=== PATIENT | female | born 1975 | race Caucasian/White ===

== ENCOUNTER 2020-03-30 14:00 | Outpatient (RCR) | payer BC, SELFPAY ==
--- NOTE | 2020-01-02 14:13 | PTOPEVAL ---
PHYSICAL THERAPY EVALUATION AND PLAN OF CARE Thank you for referring this patient to [facility] [place]. Leny will be seen in PT 2x/week for 4-8 weeks with re-evaluation. Please review, sign, date and return this plan of care MADHU. I agree with and certify that the following plan of care is medically necessary. Referring Physician Date Evaluation Outpatient Past Medical History Gastrointestinal History Hx Gastric Bypass Surgery Yes Evaluation Information Problem Diagnosis left hip arthrscopy and labral repair Onset 12/12/2019 Subjective Information Had surgery following wear and Query Text:As Reported By Patient/ tear on left hip. She states Family that there is soreness and discomfort, but the pain is significantly. 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 Self Report Pain Assessment Left Hip Reported Pain Level 5 Pain Frequency Acute Current Pain Intensity 5 Lowest Pain Intensity 5 Greatest Pain Intensity 6 Pain Aggravating Factors Walking,Weight Bearing/ Standing Pain Behaviors None Pain Relief Interventions Used By Medication Patient Hip Range of Motion Left Hip Flexion Range of Motion - Active 90 Hip Flexion Range of Motion - Passive 90 Hip Range of Motion Comments surgical precautions to not perform >90deg flexion and no IR/ER of hip until 6weeks post op Hip Strength Left Hip Flexion Strength 3+ Fair + Hip Extension Strength 4- Good - Hip Abduction Strength 3+ Fair + Knee Strength Left Knee Flexion Strength 4- Good - knee Extension Strength 4- Good - Palpation 3 arthroscopic incision sites - clean and healed - mild thickening under scars for which she was encouraged to gently massage with lotion to soften Gait Assessment Ambulation Assistive Devices Crutches Weight Bearing Status - Left As Tolerated Weight Bearing Status - Right Full Maintains Weight Bearing Status Yes Weight Bearing Comment throughout clinic Stair Climbing Assessment Stair Climbing Assistive Devices Railings Weight Bearing Status - Left As Tolerated Weight Bearing Status - Right Full Maintains Weight Bearing Status Yes Number of Steps Climbed (Steps) 4 Number of Repetitions (Repetitions) 3 Technique
--- NOTE | 2020-01-29 15:13 | PTOPEVAL ---
PHYSICAL THERAPY PLAN OF CARE UPDATE AND PROGRESS REPORT Thank you for referring this patient to [facility]. I recommend continuing physical therapy 2x/week for 4 weeks. Please review, sign, date and return this plan of care MADHU. I agree with and certify that the following plan of care is medically necessary. Referring Physician Date Re-evaluation Outpatient Past Medical History Gastrointestinal History Hx Gastric Bypass Surgery Yes Evaluation Information Problem Diagnosis left hip arthrscopy and labral repair Onset 12/12/2019 Subjective Information doing well today and went well Query Text:As Reported By Patient/ after last treatment. Saw Family physician on 01/23/2020 and was instructed to continue with restrictions for 4 weeks (until 02/20/2020). Self Report Pain Assessment Left Hip Reported Pain Level 1 Pain Description Aching,Radiating,Tightness Pain Frequency Continuous Pain Aggravating Factors Walking,Weight Bearing/ Standing Pain Behaviors None Interventions Used By Clinicians Exercise,Ice Lower Extremity Range of Motion Hip Range of Motion Left Hip Flexion Range of Motion - Active 90 Hip Flexion Range of Motion - Passive 90 Hip Range of Motion Comments surgical precautions to not perform >90deg flexion and no IR/ER of hip until 02/20/2020 Hip Strength Left Hip Flexion Strength 4- Good - Hip Extension Strength 4 Good Hip Abduction Strength 3+ Fair + Knee Strength Left Knee Flexion Strength 4+ Good + Knee Extension Strength 4+ Good + Gait Assessment Ambulation Assistive Devices Crutches Weight Bearing Status - Left As Tolerated Weight Bearing Status - Right Full Maintains Weight Bearing Status Yes Weight Bearing Comment throughout clinic; using single crutch, no pain Stair Climbing Crutches,Railings Weight Bearing Status - Left As Tolerated Weight Bearing Status - Right Full Maintains Weight Bearing Status Yes Number of Steps Climbed (Steps) 4 Number of Repetitions (Repetitions) 3 Technique Single Steps Stair Climbing Direction Both Up and Down Stair Climbing Ability Independent Stair Climbing Comments with single crutch Clinical Summary Leny is a 44 yo s/p 7 weeks post op left hip arthroscopy with labral repair. She is progressing well toward her goals. Her function and
--- NOTE | 2020-02-03 08:45 | PCPTNOTE ---
Patient called & cancelled scheduled appointment this date due to being ill.
--- NOTE | 2020-02-06 10:39 | PCPTNOTE ---
Patient called & cancelled scheduled appointment this date due to illness.
--- NOTE | 2020-02-26 14:21 | PTOPEVAL ---
PHYSICAL THERAPY PLAN OF CARE UPDATE AND PROGRESS REPORT Thank you for referring Leny Johnson to [facility]. I recommend continuing physical therapy 2x/week for 4 weeks. Please review, sign, date and return this plan of care MADHU. I agree with and certify that the following plan of care is medically necessary. Referring Physician Date Re-evaluation Outpatient Past Medical History Gastrointestinal History Hx Gastric Bypass Surgery Yes Evaluation Information Problem Diagnosis left hip arthrscopy and labral repair Onset 12/12/2019 Subjective Information patient feels no pain today. Query Text:As Reported By Patient/ At this time is slated to go Family back to work on 03/30/2020. Pain Assessment Timing of Pain Assessment Timing of Pain Assessment Pre-Treatment Self Report Self Report Pain Level 0 Lower Extremity Range of Motion Hip Range of Motion Left Hip Flexion Range of Motion - Active 120 Hip Medial Rotation - Active 31 Hip Lateral Rotation - Passive 16 Lower Extremity Muscle Strength Testing Hip Strength Left Hip Flexion Strength 4+ Good + Hip Extension Strength 4 Good Hip Abduction Strength 4 Good Knee Strength Left Knee Flexion Strength 5 Normal Knee Extension Strength 4+ Good + Balance Assessment Bunch Balance Assessment: 56/56 Time Up Go (TUG); 11sec 5 Time Sit to Stand Time in Seconds 18.57 Gait Assessment Normal gait pattern without assistive device Stair Climbing Assessment Stair Climbing Assistive Devices Railings Weight Bearing Status - Left Full Weight Bearing Status - Right Full Maintains Weight Bearing Status Yes Number of Steps Climbed (Steps) 4 Number of Repetitions (Repetitions) 3 Technique Alternating Steps Stair Climbing Direction Both Up and Down Stair Climbing Ability Independent PT Clinical Summary Leny is a 44 yo female who has participated in 15 visits for physical therapy following left hip arthrscopy. She presents today with significantly improving gait pattern and stair climbing ability and improve strength. She does continue present with decreased left LE strength and balance. I recommend continuing physical therapy.
--- NOTE | 2020-03-19 11:17 | PCPTNOTE ---
Patient came in for her appointment today, while waiting, she started feeling queasy & alittle lightheaded, then she decided to cancelled scheduled appointment this date.
--- NOTE | 2020-03-23 09:59 | PTOPEVAL ---
PHYSICAL THERAPY PLAN OF CARE UPDATE AND PROGRESS REPORT Thank you for referring Leny Johnson to [facility]. I recommend Leny continue physical therapy 1x/week for 4 weeks. Please review, sign, date and return this plan of care MADHU. I agree with and certify that the following plan of care is medically necessary. Referring Physician Date Re-evaluation Diagnosis left hip arthrscopy and labral repair Onset 12/12/2019 Subjective Information continues to feel stronger Query Text:As Reported By Patient/ with some activities in which Family she feels weak; has difficulty going down stairs and floor transfers Pain Assessment Timing of Pain Assessment Timing of Pain Assessment Pre-Treatment Self Report Self Report Pain Level 0 Pain Score Pain Score 0: Self Report Lower Extremity Range of Motion Hip Range of Motion Left Hip Flexion Range of Motion - Active 130 Hip Abduction Range of Motion - Active 35 Hip Medial Rotation - Passive 20 Hip Lateral Rotation - Passive 41 Lower Extremity Muscle Strength Testing Hip Strength Left Hip Flexion Strength 5 Normal Hip Extension Strength 4 Good Hip Abduction Strength 4+ Good + Knee Strength Left Knee Flexion Strength 5 Normal Knee Extension Strength 5 Normal Balance Assessment 56/56 Time Up Go (TUG) Timed Up and Go Test (TUG) (Seconds) 9.44 Assistive Devices None 5 Time Sit to Stand Time in Seconds 15.18 Gait Assessment: normal Stair Climbing assessment Maintains Weight Bearing Status Yes Number of Steps Climbed (Steps) 4 Number of Repetitions (Repetitions) 4 Technique Alternating Steps Stair Climbing Direction Both Up and Down Stair Climbing Ability Independent Stair Climbing Comments left LE is shakey during descent PT Clinical Summary Leny is a 44 yo female who has participated in 21 visits for physical therapy following left hip arthrscopy. Her strength and ROM are progressing significantly with challenge for functional tasks in going up/down ladders , down stairs, and floor transfers. I recommend continuing 1x/week for 4 weeks with emphasis on HEP and training for floor transfers. PT Services Indicated Yes Rehabilitation Potential
--- NOTE | 2020-04-02 09:04 | PCPTNOTE ---
This treatment is being continued on visit number [id number]. Please see documentation on both accounts to view progress. Completed interventions, outcomes, and problems have been marked as Inactive to facilitate the copying of the Care plan routine for recurring accounts.
== END 2020-04-01 23:59 | disposition home or self-care (01) ==
LOC: ANHPT 14:00
PROVIDERS: PCP Family Medicine
DX: M25.552 Pain in left hip (principal)
CPT/HCPCS: 97110; 97140; 97161

== ENCOUNTER 2020-05-18 08:00 | Outpatient (RCR) | payer BC, SELFPAY ==
--- NOTE | 2020-04-02 09:04 | PCPTNOTE ---
The treatment documented on this account is a continuation of the treatment documented on visit number [id number]. Please see documentation on both accounts to view progress. The Plan of Care has been transitioned and updated within the new V#. I have addressed and agree with the discipline specific Problems, Interventions, and Goals for the current certification period. Completed interventions, outcomes, and problems have been marked as Inactive to facilitate the copying of the Care plan routine for recurring accounts.
--- NOTE | 2020-04-20 13:23 | PTOPEVAL ---
PHYSICAL THERAPY PLAN OF CARE UPDATE AND PROGRESS REPORT Thank you for referring Leny Johnson to [facility]. I recommend continuing physical therapy 1x/week for 3 weeks. Please review, sign, date and return this plan of care MADHU. I agree with and certify that the following plan of care is medically necessary. Referring Physician Date Problem Diagnosis left hip arthrscopy and labral repair Onset 12/12/2019 Subjective Information States that getting on/off the Query Text:As Reported By Patient/ floor continues to be a Family significant challenge, makes the hip pretty angry. Self Report Pain Level 0 Additional Pain Score Comments a little tender on the back side and in the groin Lower Extremity Range of Motion Hip Range of Motion Left Hip Flexion Range of Motion - Active 120 Lower Extremity Muscle Strength Testing Hip Strength Left Hip Flexion Strength 5 Normal Hip Extension Strength 5 Normal Hip Abduction Strength 5 Normal Hip Strength Comments half kneeling to standing left foot forward: requires use of UE and painful in glutes/ piriformis and gets tight in hip flexor with repetition; single leg squat: lacks power and stability, same pain occurs as when performing half kneeling to standing Knee Strength Left Knee Flexion Strength 5 Normal Knee Extension Strength 5 Normal Palpation trigger points noted to left gluteus medius, TFL, and psoas all of which cause patient pain when she is performing functional mobility tasks including floor transfers and LLE single leg activities. Gait Pattern No Deviations/Normal PT Clinical Summary Leny is a 44 yo female who has participated in 25 visits for physical therapy following left hip arthrscopy. Leny's strength and ROM continue to normalize; however, she continues to experience pain symptoms with functional tasks that limit power, endurance, and stability. Currently there are trigger points
--- NOTE | 2020-04-27 13:14 | PCPTNOTE ---
Leny phoned earlier in the day to cancel today's appointment due to illness.
--- NOTE | 2020-05-11 12:17 | PCPTNOTE ---
Patient called & cancelled scheduled appointment this date. No reason provided.
--- NOTE | 2020-05-18 08:38 | PTOPEVAL ---
PHYSICAL THERAPY DISCHARGE NOTE Thank you for referring Leny Johnson to [facility] [facility]. Please review, sign, date and return this plan of care MADHU. I agree with and certify that the following plan of care is medically necessary. Referring Physician Date Discharge Outpatient Past Medical History Gastrointestinal History Hx Gastric Bypass Surgery Yes Diagnosis left hip arthroscopy and labral repair Onset 12/12/2019 Subjective Information States the hip is good. It is Query Text:As Reported By Patient/ sore by night time, but Family nothing I can't live with. Has been walking 20-30minutes 3x/a day. Pain Assessment Timing of Pain Assessment Timing of Pain Assessment Pre-Treatment Self Report Self Report Pain Level 0 Pain Score Pain Score 0: Self Report Additional Pain Score Comments a little tender on the back side and in the groin Lower Extremity Range of Motion Hip Range of Motion Left Hip Flexion Range of Motion - Active 120 Lower Extremity Muscle Strength Testing Hip Strength Left Hip Flexion Strength 5 Normal Hip Extension Strength 4+ Good + Hip Abduction Strength 5 Normal Hip Strength Comments half kneeling to standing left foot forward: independent; single leg squat: requires right toe for balance, but is able to rise to standing without external assist Knee Strength Left Knee Flexion Strength 5 Normal Knee Extension Strength 5 Normal PT Clinical Summary Leny is a 44 yo female who has participated in 28 visits for physical therapy following left hip arthrscopy. Leny demonstrates today WFL ROM ( deficit to rotation) and WFL strength of left hip. She has been increasing walking distance/endurance and she has been practicing single leg squad and rise from half kneeling. All functional activities are independent and may only require a small finger touch or toe touch for balance. There is very minimal pain with activity at this time with most discomfort
== END 2020-05-18 14:19 | disposition home or self-care (01) ==
LOC: ANHPT 08:00
PROVIDERS: PCP Family Medicine
DX: M25.552 Pain in left hip (principal)
CPT/HCPCS: 97110; 97140

== ENCOUNTER 2020-09-24 01:31 | Emergency (ER) | payer BC, SELFPAY ==
--- NOTE | ~2020-09-24 | CT_ITS ---
EXAMINATION: CT abdomen pelvis wo con DATE: 09/24/2020 02:09 INDICATION: Abdominal pain TECHNIQUE: Computed tomography (CT) of the abdomen and pelvis was performed without intravenous contr ast. The dose-length product (DLP) was 590.33 mGy-cm. Automated exposure control and iterative recons truction technique were employed. COMPARISON: 07/07/2015 FINDINGS: Calcified pulmonary nodules are consistent with old granulomatous disease. The heart size i s normal. Surgical changes in the stomach are consistent with gastric bypass. The liver, spleen, panc reas, and adrenal glands are normal. There is mild distention of the otherwise normal-appearing gallb ladder. The kidneys are unremarkable. No pathologically enlarged abdominal or pelvic lymph nodes are identified. There is no free intraperitoneal gas or evidence of bowel obstruction. The appendix is no rmal. There are changes of hysterectomy. IMPRESSION: 1. No CT correlate for the patient's symptoms. Reviewed, dictated and finalized at location A. FORM POWER TECHNICIAN
[2020-09-24 01:30] VITALS: BP 136/82; PULSE 120; RESP 20; TEMP 36.6; O2SAT 98
[2020-09-24 01:50] VITALS: BP 128/72; PULSE 96; RESP 20; O2SAT 99
--- NOTE | 2020-09-24 01:56 | ECG_ITS ---
Measurements Intervals Lewis Rate: 57 P: 29 SD: 170 QRS: 8 QRSD: 82 T: 36 QT: 386 QTc: 378 Interpretive Statements SINUS BRADYCARDIA POSSIBLE LEFT ATRIAL ENLARGEMENT RSR' IN V1 OR V2, PROBABLY NORMAL VARIANT LOW QRS VOLTAGE IN PRECORDIAL LEADS BASELINE ARTIFACT- V2-V4 BORDERLINE ECG Electronically Signed On 09-24-2020 7:10:10 FLIGHT HOSTESS by Daniel Gonzalez D.O.
--- NOTE | 2020-09-24 01:58 | ED.ABDPAIN ---
HPI - Abdominal Pain General Chief Complaint: Abdominal Pain Stated Complaint: abd pain Time Seen by Provider: 09/24/20 01:42 Source: patient Mode of arrival: EMS Limitations: no limitations History of Present Illness HPI narrative: Patient is a 45-year-old female complaining of epigastric pain, was 8 out of 10, now at 3 out of 10, that started earlier today which subsided and recurred again early this morning and woke her up from sleep. Patient denies any nausea, vomiting, diarrhea or fever. Patient denies any chest pain or shortness of breath. Related Data Home Medications Medication Instructions Recorded Confirmed linaclotide 145 mcg capsule 145 mcg PO DAILY 11/06/19 11/06/19 Allergies Allergy/AdvReac Type Severity Reaction Status Date / Time Cephalosporins Allergy Mild Hives / Verified 02/25/20 10:52 Red Face egg Allergy Mild Hives Verified 02/25/20 10:52 cephalexin Allergy Unknown Rash Verified 02/25/20 10:52 ciprofloxacin Allergy Unknown Hives Verified 02/25/20 10:52 iodine Allergy Unknown Hives Verified 02/25/20 10:52 ALT. PENICILLIN ANTIBIOTIC Allergy Severe HIVES Uncoded 02/25/09 08:42 IN PREOP Contrast Media Allergy Mild IODINE CT Uncoded 12/27/17 05:20 SCAN (RASH) CIPROFLOXACIN HCL Allergy Unknown Rash Uncoded 11/06/19 12:02 Review of Systems Review of Systems: All systems reviewed & are unremarkable except as noted in HPI and below Constitutional: Constitutional: Denies body ache(s), Denies chills, Denies excessive sweating, Denies fatigue, Denies fever(s), Denies headache(s), Denies lethargy, Denies malaise, Denies weakness and Denies weight loss Eyes: Eyes: Denies blurry vision, Denies change in vision and Denies loss of vision ENT: Denies dizziness, Denies ear discharge, Denies headache(s), Denies lip swelling, Denies epistaxis, Denies nasal congestion, Denies neck pain, Denies throat swelling and Denies tongue swelling Cardiovascular: Cardiovascular: Denies chest pain, Denies chest pain at rest, Denies chest pain with activity, Denies diaphoresis, Denies rapid heart rate, Denies edema, Denies irregular heart rhythm, Denies lightheadedness, Denies palpitations, Denies dyspnea and Denies dyspnea on exertion Respiratory: Respiratory: Denies chest congestion, Denies cough, Denies hemoptysis, Denies dyspnea and Denies dyspnea on exertion Gastrointestinal: Gastrointestinal: Denies melena, Denies hematochezia, Denies diarrhea, Denies nausea, Denies vomiting and Denies hematemesis Musculoskeletal: Musculoskeletal: Denies abnormal gait, Denies deformity, Denies joint swelling, Denies limited range of motion, Denies neck pain and Denies numbness Neurologic: Denies Abnormal speech present, Denies abnormal gait, Denies confusion, Denies dizziness, Denies headache(s), Denies focal weakness, Denies loss of vision, Denies numbness, Denies Other visual disturbances, Denies Sensory deficit (Neuro) and Denies weakness Psychiatric: Psychiatric: Denies confusion, Denies depression, Denies auditory hallucinations, Denies homicidal ideation and Denies suicidal ideation Endocrine: Endocrine: Denies cold intolerance, Denies excessive sweating, Denies fatigue, Denies heat intolerance and Denies palpitations Hematologic/Lymphatic: Hematologic/Lymphatic: Denies easy bleeding and Denies easy bruising Allergic/Immunologic: Allergic/Immunologic: Denies lip swelling, Denies throat swelling and Denies tongue swelling PMF Past Medical History Medical History (Updated 09/24/20 @ 03:12 by Khris Rutledge MD) Chronic SI joint pain HLD (hyperlipidemia) Hypothyroidism Surgical History Surgical History H/O hernia repair H/O hysterectomy with oophorectomy Hx of gastric bypass (~2015) Family History Family History Mother Family history of thyroid disease Family history of heart disease in male family member bef
[2020-09-24 02:04] LABS: Basophils Absolute Auto 0.1 K/mm3 (0.0-0.1); Basophils Percent Auto 0.8 % (0.2-1.2); Eosinophils Absolute Auto 0.2 K/mm3 (0-0.3); Eosinophils Percent Auto 2.7 % (0-4.4); Hematocrit 40.6 % (37.0-47.0); Hemoglobin 13.5 g/dL (12.0-15.0); Immature Granulocyte Absolute 0.02 K/mm3 (0.00-0.031); Immature Granulocyte Percent A 0.3 % (0-0.5); Lymphocytes Absolute Auto 2.41 K/mm3 (0.9-3.2); Lymphocytes Percent Auto 31.3 % (18.3-44.2); Mean Corpuscular HGB Conc 33.3 g/dl (32-36); Mean Corpuscular Hemoglobin 31.5 pg (26-34); Mean Corpuscular Volume 94.6 fl (80-100); Mean Platelet Volume 10.8 fl (7.4-10.4); Monocytes Absolute Auto 0.5 K/mm3 (0.1-0.6); Monocytes Percent Auto 6.2 % (2.6-8.5); Neutrophils Absolute Auto 4.5 K/mm3 (1.3-6.7); Neutrophils Percent Auto 58.7 % (45.5-73.1); Platelet Count Result 187 k/mm3 (150-375); Red Blood Count 4.29 M/mm3 (4.2-5.4); Red Cell Distribution Width 12.7 % (11.5-14.5); White Blood Count 7.7 K/mm3 (4.5-10.0)
[2020-09-24] MEDS: PANTOPRAZOLE SODIUM IV 40 MG VIAL IV PUSH (02:15)
[2020-09-24 02:16] LABS: Alanine Aminotransferase 112 U/L (4-35); Albumin Level 4.1 g/dL (3.5-5.1); Alkaline Phosphatase 90 U/L (38-126); Anion Gap 8 mmol/L (8-16); Aspartate Amino Transferase 292 U/L (14-36); Bilirubin,Total 0.6 mg/dL (0.2-1.3); Blood Urea Nitrogen 12 mg/dL (7-17); Calcium 9.4 mg/dL (8.4-10.2); Carbon Dioxide 28 mmol/L (22-30); Chloride 104 mmol/L (98-107); Estimated CRCL calculation 107 ml/min; Estimated Glomerular Filt Rate > 60; Glucose 94 mg/dL (65-105); Lipase 155 U/L (23-300); Potassium 4.2 mmol/L (3.4-5.0); Sodium 140 mmol/L (137-145)
[2020-09-24 03:41] VITALS: BP 109/71; PULSE 66; RESP 18; O2SAT 97
== END 2020-09-24 03:44 | disposition home or self-care (01) ==
PROVIDERS: Emergency Provider Emergency Medicine; PCP Family Medicine
DX: K29.00 Acute gastritis without bleeding (principal); E78.5 Hyperlipidemia, unspecified; E03.9 Hypothyroidism, unspecified; Z98.84 Bariatric surgery status; R00.1 Bradycardia, unspecified; R94.31 Abnormal electrocardiogram [ECG] [EKG]
CPT/HCPCS: 36415; 74176; 80053; 83690; 85025; 93005; 96374; 99284; C9113

== ENCOUNTER 2021-03-18 17:07 | Emergency (ER) | payer BC, SELFPAY ==
--- NOTE | ~2021-03-18 | CT_ITS ---
EXAMINATION: CT abdomen pelvis wo con DATE: 03/18/2021 18:02 INDICATION: Epigastric abdominal pain. TECHNIQUE: Computed tomography (CT) of the abdomen and pelvis was performed with 100 mL Omnipaque-350 intravenous contrast. Automated exposure control and iterative reconstruction technique were employe d. The dose-length product was 491.69 mGy-cm. COMPARISON: 09/24/2020 FINDINGS: Calcified left lower lobe nodule and calcified paraesophageal lymph node consistent with old granulom atous disease. Heart size is normal. No pericardial or pleural effusion. Liver, gallbladder, spleen, pancreas, bilateral adrenal glands and kidneys are normal. Postoperative change of prior Huan-en-Y ga stric bypass procedure. There is prominent mesenteric edema and engorgement of the venous mesenteric vasculature distal to th e root of the mesentery where there appears be a swirl with the superior mesenteric vein curving coun terclockwise around the superior mesenteric artery. 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 No abnormal bowel wall thickening, pneumatosis or obstruction. Bladder is normal. The uterus is not identified and has likely been surgically resected. No free intraperitoneal gas or fluid. No patholo gically enlarged abdominal or pelvic lymphadenopathy. IMPRESSION: 1. 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 2. Postoperative change of prior Huan-en-Y gastric bypass procedure. Reviewed, dictated and finalized at location A. IMPRESSION: 1. 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 2. Postoperative change of prior Huan-en-Y gastric bypass procedure.
[2021-03-18 17:15] VITALS: BP 145/97; PULSE 118; RESP 18; TEMP 36.1; O2SAT 100
[2021-03-18 17:32] VITALS: BP 125/90; PULSE 63; RESP 24; TEMP 36.6; O2SAT 98
[2021-03-18 17:48] LABS: Basophils Absolute Auto 0.1 K/mm3 (0.0-0.1); Eosinophils Absolute Auto 0.2 K/mm3 (0-0.3); Eosinophils Percent Auto 2.8 % (0-4.4); Hematocrit 42.4 % (37.0-47.0); Immature Granulocyte Absolute 0.03 K/mm3 (0.00-0.031); Immature Granulocyte Percent A 0.4 % (0-0.5); Lymphocytes Percent Auto 19.5 % (18.3-44.2); Mean Corpuscular Hemoglobin 31.5 pg (26-34); Mean Corpuscular Volume 95.5 fl (80-100); Mean Platelet Volume 10.3 fl (7.4-10.4); Monocytes Absolute Auto 0.6 K/mm3 (0.1-0.6); Monocytes Percent Auto 6.9 % (2.6-8.5); Neutrophils Absolute Auto 5.7 K/mm3 (1.3-6.7); Neutrophils Percent Auto 69.4 % (45.5-73.1); Platelet Count Result 235 k/mm3 (150-375); Red Blood Count 4.44 M/mm3 (4.2-5.4); Red Cell Distribution Width 11.3 % (11.5-14.5); White Blood Count 8.2 K/mm3 (4.5-10.0)
--- NOTE | 2021-03-18 17:49 | ED.ABDPAIN ---
HPI - Abdominal Pain General Chief Complaint: Abdominal Pain Stated Complaint: Abd Pain Time Seen by Provider: 03/18/21 17:34 Source: patient Mode of arrival: EMS Limitations: no limitations History of Present Illness HPI narrative: This is a 45 year old female that presents to the ER for mid abdominal pain present over the last couple of hours. Reports the pain is sharp in nature. Does report some diarrhea. Denies fever, vomiting, dysuria, or hematuria. Related Data Home Medications Medication Instructions Recorded Confirmed linaclotide 145 mcg capsule 145 mcg PO DAILY 11/06/19 11/06/19 Allergies Allergy/AdvReac Type Severity Reaction Status Date / Time Cephalosporins Allergy Mild Hives / Verified 11/23/20 14:07 Red Face egg Allergy Mild Hives Verified 11/23/20 14:07 cephalexin Allergy Unknown Rash Verified 11/23/20 14:07 ciprofloxacin Allergy Unknown Hives Verified 11/23/20 14:07 iodine Allergy Unknown Hives Verified 11/23/20 14:07 ALT. PENICILLIN ANTIBIOTIC Allergy Severe HIVES Uncoded 11/23/20 14:07 IN PREOP Contrast Media Allergy Mild IODINE CT Uncoded 11/23/20 14:07 SCAN (RASH) CIPROFLOXACIN HCL Allergy Unknown Rash Uncoded 11/23/20 14:07 Review of Systems Review of Systems: Narrative: CONSTITUTIONAL: Denies fever GASTROINTESTINAL: Reports abdominal pain, diarrhea. Denies nausea, vomiting GENITOURINARY: Denies dysuria or hematuria. All systems reviewed & are unremarkable except as noted in HPI and below PMFSH Past Medical History Medical History (Updated 03/19/21 @ 00:00 by Background Dachandana) Chronic SI joint pain Elevated liver enzymes HLD (hyperlipidemia) Hypothyroidism Surgical History Surgical History (Updated 11/23/20 @ 14:52 by Sultana Olivas MD) Gastric bypass status for obesity H/O hernia repair H/O hysterectomy with oophorectomy History of hip surgery Hx of gastric bypass (~2015) Family History Family History Mother Family history of thyroid disease Family history of heart disease in male family member before age 55 Father Family history of diabetes mellitus in first degree relative Sibling Family history of heart disease in male family member before age 55 Other Carcinoma of colon Hypertension Social History Social History Smoking status: Never smoker Second hand tobacco smoke exposure: No Alcohol intake: current Gender identity (if verbalized by the patient): Female Exam Narrative: Exam Narrative: GENERAL: Well-appearing, well-nourished, and in mild acute distress due to pain. HEAD: Normocephalic, atraumatic. EYES: EOMI. CHEST: Clear to auscultation. No respiratory distress. No wheezes rales or rhonchi HEART: Regular rate and rhythm. No murmur heard. Normal peripheral pulses. ABDOMEN: Soft, nondistended, normal active bowel sounds. Tender to palpation in the epigastrium, without guarding. No CVA tenderness EXTREMITIES: Normal range of motion. No edema. SKIN: Warm, dry, no rash. NEURO: No focal deficits. Alert and oriented x3. PSYCH: Normal mood and affect Course Consultations Consultation #1: Spoke with Dr. Serrano about patient and work-up who reports patient needs to be at a center that does bariatric surgery Date: 03/18/21 Time: 18:30 Consultation #2: Patient's surgeon at the time was practicing at [facility]. He no longer practices there, but I did attempt to transfer there and the surgeon on-call did not accept. Date: 03/18/21 Time: 19:00 Consultation #3: Spoke with Dr. Adler at [facility] who is unable to accept transfer as they are full. Date: 03/18/21 Time: 19:30 Additional Consultation(s): [facility] has accepted transfer. Spoke with Dr. Sarkar about patient and workup Vital Signs Vital signs: Vital Signs Temperature 97.0 F L 03/18/21 17:15 Pulse Rate 118 H 03/18/21 17:15 Respiratory Rate 18 02/19
[2021-03-18 17:58] LABS: Alanine Aminotransferase 22 U/L (4-35); Albumin Level 4.6 g/dL (3.5-5.1); Alkaline Phosphatase 69 U/L (38-126); Anion Gap 7 mmol/L (8-16); Aspartate Amino Transferase 31 U/L (14-36); Bilirubin,Total 0.4 mg/dL (0.2-1.3); Blood Urea Nitrogen 10 mg/dL (7-17); Calcium 9.7 mg/dL (8.4-10.2); Carbon Dioxide 29 mmol/L (22-30); Chloride 103 mmol/L (98-107); Estimated CRCL calculation 73 ml/min; Estimated Glomerular Filt Rate > 60; Glucose 92 mg/dL (65-105); Lipase 215 U/L (23-300); Potassium 4.1 mmol/L (3.4-5.0); Sodium 139 mmol/L (137-145)
[2021-03-18] MEDS: MORPHINE SULFATE (*CRX) 4 MG/ML INJ IV PUSH ×3 (18:09→22:47)
[2021-03-18] MEDS: PANTOPRAZOLE SODIUM IV 40 MG VIAL IV PUSH (18:09)
[2021-03-18] MEDS: ONDANSETRON INJ 4 MG/2 ML VIAL IV PUSH (18:10)
[2021-03-18 19:00] LABS: Lactic Acid Reflex 1.4 mmol/L (0.7-2.1)
[2021-03-18 19:30] VITALS: BP 124/75; PULSE 53; RESP 16; O2SAT 95
[2021-03-18 20:21] LABS: Add Urine Microscopic? YES; Appearance Urine Clear (Clear); Bacteria Urine Trace /hpf; Bilirubin Urine Negative (Negative); Blood Urine Negative (Negative); Color Urine Yellow (Yellow); Glucose Urine UA Negative (Negative); Ketones Urine Trace mg/dL (Negative); Leukocyte Esterase Ur Negative LEU/UL (Negative); Nitrate Urine Negative (Negative); Protein Urine Negative (Negative); RBC Urine 0-2 /hpf (0-2); Specific Grav Ur 1.011 (1.001-1.035); Squamous Epithelial Cell Urine Occasional /hpf (Few); Urobilinogen Urine Negative mg/dL (<2.0); WBC Urine 0-3 /hpf
[2021-03-18 20:30] VITALS: BP 128/68; PULSE 57; RESP 16; O2SAT 98
[2021-03-18 21:00] VITALS: BP 109/62; PULSE 56; RESP 16; O2SAT 99
[2021-03-18 22:00] VITALS: BP 139/81; PULSE 54; RESP 16; O2SAT 99
--- NOTE | 2021-03-18 22:40 | PC.NURSE ---
pt works with [employer] [employer] and company offered to take her to [facility]
== END 2021-03-18 22:55 | disposition short-term general hospital (02) ==
PROVIDERS: Physician Assistant; Emergency Provider Emergency Medicine; PCP Family Medicine
DX: K56.2 Volvulus (principal); E78.5 Hyperlipidemia, unspecified; E03.9 Hypothyroidism, unspecified; Z98.84 Bariatric surgery status
CPT/HCPCS: 36415; 74176; 80053; 81001; 83605; 83690; 85025; 96374; 96375; 96376; 99285; C9113; J0131; J2270; J2405

== ENCOUNTER 2021-05-02 11:05 | Emergency (ER) | payer BC, SELFPAY ==
[2021-05-02 11:11] VITALS: BP 129/94; PULSE 75; RESP 16; TEMP 35.9; O2SAT 100
--- NOTE | 2021-05-02 11:14 | ED.SKABFB ---
HPI - Skin/Abscess/Foreign Bdy General Chief complaint: Skin/Abscess/Foreign Body Stated complaint: spider bite Time Seen by Provider: 05/02/21 11:10 Source: patient and RN notes reviewed Mode of arrival: ambulatory Limitations: no limitations History of Present Illness HPI narrative: 46-year-old female presents to the [facility] with complaints of a spider bite to the left side of face. Redness with mild swelling noted to the anglican area. No change in vision or blurry vision. Currently eyelids are not involved. Able to open and close issue. Swelling noted temporal area into the cheek and stops at the edge of the eyebrow. Denies fevers. Denies any drainage from the site. No chest pain or abdominal pain. No treatment prior to arrival Patient states she is really concerned about the infection because she is scheduled for surgery at the end of this month for a tear in the left hip. Related Data Home Medications Medication Instructions Recorded Confirmed linaclotide 145 mcg capsule 145 mcg PO DAILY 11/06/19 05/02/21 Allergies Allergy/AdvReac Type Severity Reaction Status Date / Time Cephalosporins Allergy Mild Hives / Verified 05/02/21 11:14 Red Face egg Allergy Mild Hives Verified 05/02/21 11:14 cephalexin Allergy Unknown Rash Verified 05/02/21 11:14 ciprofloxacin Allergy Unknown Hives Verified 05/02/21 11:14 iodine Allergy Unknown Hives Verified 05/02/21 11:14 ALT. PENICILLIN ANTIBIOTIC Allergy Severe HIVES Uncoded 05/02/21 11:14 IN PREOP Contrast Media Allergy Mild IODINE CT Uncoded 05/02/21 11:14 SCAN (RASH) CIPROFLOXACIN HCL Allergy Unknown Rash Uncoded 05/02/21 11:14 Review of Systems Review of Systems: All systems reviewed & are unremarkable except as noted in HPI and below Constitutional: Constitutional: Reports no additional constitutional complaints, Denies chills and Denies fever(s) Eyes: Eyes: Reports no additional eye complaints, Denies change in vision and Denies photophobia ENT: Reports system reviewed and no additional complaints, except as documented, Denies vertigo, Denies dizziness, Denies nasal congestion and Denies sore throat Cardiovascular: Cardiovascular: Reports no additional cardiovascular complaints and Denies chest pain Respiratory: Respiratory: Reports no additional respiratory complaints, Denies cough, Denies dyspnea and Denies wheezing Gastrointestinal: Gastrointestinal: Reports no additional gastrointestinal complaints, Denies abdominal pain, Denies nausea and Denies vomiting Musculoskeletal: Musculoskeletal: Reports no additional musculoskeletal complaints Integumentary/Breasts: Skin/Breast: Reports as per HPI, Reports erythema (Left lateral [id number] left tempral area) and Denies rash Neurologic: Reports system reviewed and no additional complaints, except as documented, Denies vertigo, Denies dizziness, Denies syncope, Denies headache(s), Denies focal weakness and Denies numbness Psychiatric: Psychiatric: Reports no additional psychiatric complaints Allergic/Immunologic: Allergic/Immunologic: Reports no additional allergic/immunologic complaints, Denies lip swelling, Denies throat swelling, Denies tongue swelling and Denies wheezing PMFSH Past Medical History Medical History (Updated 05/02/21 @ 11:15 by Cynthia Ruvalcaba) Chronic SI joint pain Elevated liver enzymes HLD (hyperlipidemia) Hypothyroidism Surgical History Surgical History Gastric bypass status for obesity H/O hernia repair H/O hysterectomy with oophorectomy History of hip surgery Hx of gastric bypass (~2015) Family History Family History Mother Family history of thyroid disease Family history of heart disease in male family member before age 55 Father Family history of diabetes mellitus in first degree relative Sibling Family history of heart disease in male family member before age 55 Other Carcino
== END 2021-05-02 11:19 | disposition home or self-care (01) ==
PROVIDERS: Emergency Provider Nurse Practitioner; PCP Family Medicine
DX: L03.211 Cellulitis of face (principal); L02.01 Cutaneous abscess of face; E78.5 Hyperlipidemia, unspecified; E03.9 Hypothyroidism, unspecified; Z98.84 Bariatric surgery status
CPT/HCPCS: 99213; G0463

== ENCOUNTER 2021-09-23 12:30 | Outpatient (RCR) | payer BC, SELFPAY ==
--- NOTE | 2021-07-01 10:48 | PTOPEVAL ---
PHYSICAL THERAPY EVALUATION AND PLAN OF CAR E Thank you for referring Leny Johnson to [facility].? The patient is scheduled to be seen for therapy? 2x/week for 4-6 weeks. Please review, sign, date and return this plan of care MADHU. I agree with and certify that the following plan of care is medically necessary. Referring Physician Date Evaluation Diagnosis left hip arthroscopy and labral repair Onset 06/17/2021 Subjective Information Leny is here today 2 weeks s/p Query Text:As Reported By Patient/ surgery. This is the second Family time she has had this surgery. After the first surgery she went back to work ([employer]) for 1. 5 months and stepped out of the ambulance and felt a pop. The labrum retore with a tear in the capsule. Self Report Pain Assessment Left Hip(s) Reported Pain Level 1 Pain Frequency Acute,Intermittent Other Pain Description just tender Pain Aggravating Factors Lifting Pain Behaviors None Pain Score Pain Score 1: Self Report Interventions Used Interventions Used By Clinicians Exercise Pain Relief Interventions Used By Medication,Position Change Patient Lower Extremity Range of Motion Hip Range of Motion Left Hip Flexion Range of Motion - Active 90 Hip Extension Range of Motion - Active 20 Lower Extremity Muscle Strength Testing Hip Strength Left Hip Flexion Strength 4+ Good + Hip Extension Strength 4- Good - Hip Abduction Strength 4 Good Knee Strength Bilateral Knee Flexion Strength 5 Normal Knee Extension Strength 5 Normal Palpation Assessment Palpation Palpation incision sites are clean and dry and soft to touch with minimal scar tissue forming Gait Assessment Gait Assessment Ambulation Assistive Devices Crutches Weight Bearing Status - Left As Tolerated Weight Bearing Status - Right Full Maintains Weight Bearing Status Yes Ambulation Distance 200 Query Text:(Feet) Ambulation Ability Independent Stair Climbing Assessment Stair Climbing Assessment Stair Climbing Assistive Devices Railings Weight Bearing Status - Left As Tolerated Weight Bearing Status - Right Full Maintains Weight Bearing Status Yes Number of Steps Climbed (Steps) 4 Number of Repetitions (Repetitions) 1 Technique Alternating Steps Stair Climbing Direction Up Stair Climbing Ability Independent General Exercise General
--- NOTE | 2021-07-08 08:50 | PCPTNOTE ---
Patient called & cancelled scheduled appointment this date due to child being sick.
--- NOTE | 2021-07-20 08:14 | PCPTNOTE ---
Patient called & cancelled scheduled appointment this date due to being sick.
--- NOTE | 2021-07-27 09:05 | PTOPEVAL ---
PHYSICAL THERAPY PLAN OF CARE UPDATE AND PROGRESS REPORT Thank you for referring Leny Johnson to [facility].? The patient is scheduled to be seen for therapy? 2x/week for 5 weeks. Please review, sign, date and return this plan of care MADHU. I agree with and certify that the following plan of care is medically necessary. Referring Physician Date Progress Diagnosis left hip arthroscopy and labral repair Onset 06/17/2021 Subjective Information doing well overall. Still has Query Text:As Reported By Patient/ mild pain that increases to a Family moderate level when she does not use crutches. She is working on decreasing use of crutches. Self Report Pain Assessment Left Hip(s) Reported Pain Level 2 Pain Description Aching Radicular Pain Location tired Pain Frequency Acute,Intermittent Other Pain Description just tender Pain Aggravating Factors Lifting Pain Behaviors None Pain Score Pain Score 2: Self Report Interventions Used Interventions Used By Clinicians Exercise Lower Extremity Range of Motion Hip Range of Motion Left Hip Flexion Range of Motion - Active 90 Hip Extension Range of Motion - Active 20 Lower Extremity Muscle Strength Testing Hip Strength Left Hip Flexion Strength 4+ Good + Hip Extension Strength 3 Fair Hip Abduction Strength 4 Good Knee Strength Bilateral Knee Flexion Strength 5 Normal Knee Extension Strength 5 Normal General Exercise General Exercises Side Left Exercise Location LE/hip Exercise Type Active,Resistive Exercise Description -prone knee Query Text:Record Sets, Reps, -unilateral bridge x10 on left Resistance, and Position -bent knee fall out within comfortable range x20 - SLR x15 with 1# ankle weight - s/l SLR x15 with 1# ankle weight -SAQ x15 with 1# ankle weight -hooklying marches with lower abdominal bracing x15 -sitting hamstring stretch [id number] x2 each side -sit to stand with staggered feet x10 Exercise Comments . Modalities Hot Pack/Cold Pack Left Hip Type Hot Pack Hot Pack/Cold Pack Duration (minutes) 10 Hot Pack/Cold Pack Patient Position Supine Reason For Treatment Pain Ma
--- NOTE | 2021-08-12 09:20 | PCPTNOTE ---
Patient had to cancelled her scheduled appointment this date due to getting a phone call that her son was sick & she had to leave.
--- NOTE | 2021-08-30 09:14 | PTOPEVAL ---
PHYSICAL THERAPY PROGRESS REPORT Thank you for referring Leny Johnson to [facility].? The patient is scheduled to be seen for therapy? 2x/week for 4 weeks. Please review, sign, date and return this plan of care MADHU. I agree with and certify that the following plan of care is medically necessary. Referring Physician Date Progress Diagnosis left hip arthroscopy and labral repair Onset 06/17/2021 Additional Evaluation Detail patient arrives today with several bruises on her face/ head - states that on Monday morning she had diahrrea and then felt like she was going to pass out and next thing she fell into the bathtub hitting her face; states that her left hip is ok. Subjective Information going well; no longer using Query Text:As Reported By Patient/ crutches. States that there is Family weakness and fatigue in the left hip. Pain is improving Self Report Pain Assessment Left Hip(s) Reported Pain Level 3 Pain Description Aching Greatest Pain Intensity 5 Pain Score Pain Score 3: Self Report Interventions Used Interventions Used By Clinicians Exercise Pain Relief Interventions Used By Ice,Medication Patient Lower Extremity Range of Motion Hip Range of Motion Left Hip Flexion Range of Motion - Active 90 Hip Extension Range of Motion - Active 20 Lower Extremity Muscle Strength Testing Hip Strength Right Hip Flexion Strength 4+ Good + Hip Extension Strength 4 Good Hip Abduction Strength 3+ Fair + Left Hip Flexion Strength 4+ Good + Hip Extension Strength 3 Fair Hip Abduction Strength 4 Good Knee Strength Bilateral Knee Flexion Strength 5 Normal Knee Extension Strength 5 Normal Balance Assessment Time Up Go (TUG) Timed Up and Go Test (TUG) (Seconds) 10 Assistive Devices None 5 Time Sit to Stand Time in Seconds 15.46 5 Time Sit to Stand Comments right knee collapsing in, hips Query Text:Normative Data: If Greater shifting right Than 15 Seconds, 74% Increase Risk for Recurrent Falls Gait Assessment 2 Minute Walk Total Distance Walked (feet) 359 2 Minute Walk Gait Speed Score (feet/ 2.99 second) Stair Climbing Assessment Stair Climbing Assessment Stair Climbing Assistive Devices Railings Weight Bearing Status - Left As Tolerated Weight Bearing Status - Right Full Maintains Weight Bearing Status Yes Number of St
--- NOTE | 2021-09-16 12:37 | PCPTNOTE ---
Patient called & cancelled scheduled appointment this date due to not feeling well.
--- NOTE | 2021-09-27 09:15 | PCPTNOTE ---
Patient called & cancelled scheduled appointment this date due to a migraine. She rescheduled the appt.
--- NOTE | 2021-09-29 10:11 | PCPTNOTE ---
This treatment is being continued on visit number [id number]. Please see documentation on both accounts to view progress. Completed interventions, outcomes, and problems have been marked as Inactive to facilitate the copying of the Care plan routine for recurring accounts.
== END 2021-09-28 14:20 | disposition home or self-care (01) ==
LOC: ANHPT 12:30
PROVIDERS: PCP Family Medicine
DX: M25.552 Pain in left hip (principal)
CPT/HCPCS: 97110; 97116; 97140; 97161

== ENCOUNTER 2021-10-04 11:26 | Outpatient (RCR) | payer BC, SELFPAY ==
--- NOTE | 2021-09-29 10:21 | PCPTNOTE ---
The treatment documented on this account is a continuation of the treatment documented on visit number [id number]. Please see documentation on both accounts to view progress. The Plan of Care has been transitioned and updated within the new V#. I have addressed and agree with the discipline specific Problems, Interventions, and Goals for the current certification period. Completed interventions, outcomes, and problems have been marked as Inactive to facilitate the copying of the Care plan routine for recurring accounts.
--- NOTE | 2021-10-04 09:15 | PTOPEVAL ---
PHYSICAL THERAPY DISCHARGE NOTE Thank you for referring Leny Johnson to [facility].? Please review, sign, date and return this plan of care MADHU. I agree with and certify that the following plan of care is medically necessary. Referring Physician Date Discharge Diagnosis left hip arthroscopy and labral repair Onset 06/17/2021 Subjective Information hip feels pretty good. 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 Self Report Pain Assessment Left Hip(s) Reported Pain Level 0 Pain Score Pain Score 0: Self Report Interventions Used Interventions Used By Clinicians Exercise Lower Extremity Muscle Strength Testing Hip Strength Left Hip Flexion Strength 5 Normal Hip Extension Strength 3 Fair Hip Abduction Strength 3 Fair Hip Medial Rotation Strength 4+ Good + Hip Lateral Rotation Strength 5 Normal Knee Strength Left Knee Flexion Strength 5 Normal Knee Extension Strength 5 Normal Balance Assessment Jacobson Balance Assessment Sitting to Standing Independent w/out Hands Unsupported Stance Ability Safely- 2 minutes Sitting Unsupported, Feet on Floor Safely- 2 minutes Standing to Sitting Safely, Minimal Hand Use Transfer Ability Safely, Minimal Hand Use Unsupported Stance- Eyes Closed Supervision, 10 seconds Unsupported Stance- Feet Together Independent, 1 minute Reaching Forward while Standing Confidently, 10 inches 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 Object From Floor Supervision Look Behind Shoulder - Standing Shifts Weight Well Turning 360 Degrees Turns Bilateral, < 4 secs Unsupported Stance, Alternating Feet on (I)- 8 Steps in 20 secs Stair Unsupported Tandem Stance Achieves Tandem Unilateral Leg Stance Lifts Leg/Holds 10 secs JACOBSON Balance Evaluation Total Score (/56 54 points) Gait Assessment 2 Minute Walk Total Distance Walked (feet) 409 2 Minute Walk Gait Speed Score (feet/ 3.40 second) Stair Climbing Assessment Stair Climbing Assessment Stair Climbing Assistive Devices Railings Maintains Weight Bearing Status Yes Number of Steps Climbed (Steps) 4 Number of Repetitions (Repetitions) 4 Technique Alternating Steps Stair Climbing Direction Both Up and Down Stair Climbing Ability Independent General Exercise General Exercises Side Left Exercise Location
== END 2021-12-20 08:45 | disposition home or self-care (01) ==
LOC: ANHPT 11:26
PROVIDERS: PCP Family Medicine
DX: Z47.89 Encounter for other orthopedic aftercare (principal); M25.552 Pain in left hip
CPT/HCPCS: 97110

== ENCOUNTER 2023-01-03 12:58 | Emergency (ER) | payer BC, SELFPAY ==
--- NOTE | ~2023-01-03 | XR_ITS ---
EXAMINATION: XR ankle LT min 3V DATE: 01/03/2023 13:27 INDICATION: Left ankle injury and pain. TECHNIQUE: 4 views of left ankle were obtained. COMPARISON: None. FINDINGS: Bone alignment is normal. No acute fracture. There is heterotopic ossification distal to me dial and lateral malleoli. Joint spaces are normal. There are enthesophytes at the posterior and plan tar aspects of calcaneal tuberosity. Ankle soft tissue swelling is noted. IMPRESSION: 1. No acute fracture. Reviewed, dictated and finalized at location A. OARD OPERATOR IMPRESSION: 1. No acute fracture.
[2023-01-03 12:58] VITALS: BP 144/77; PULSE 60; RESP 16; TEMP 36.3; O2SAT 99
--- NOTE | 2023-01-03 13:08 | ED.LOWEXIN ---
HPI - Extremity Injury (Lower) General Chief Complaint: Extremity Injury, Lower Stated Complaint: left ankle injury Time Seen by Provider: 01/03/23 13:03 History of Present Illness HPI Narrative: Pt was getting granddaughter on bus this morning and rolled left ankle. Pt sasy she has been icing and babying it and it is swollen and tender and she thought she should get it checked since she had surgery years ago on same ankle. Related Data Home Medications Medication Instructions Recorded Confirmed Lactobac 51-Bifidobac 1 cap PO DAILY 10/27/22 01/03/23 3-L.lactis-S.thermophilus 4 billion cell capsule (Daily Probiotic (10 Strains)) calcium citrate 315 mg-vitamin D3 1 tablet PO DAILY 10/27/22 01/03/23 5 mcg (200 unit) tablet (Calcium Citrate + D) cholecalciferol (vitamin D3) 50 50 mcg PO DAILY 10/27/22 01/03/23 mcg (2,000 unit) capsule docusate sodium 100 mg tablet 100 mg PO DAILY 10/27/22 01/03/23 (Stool Softener) mecobalamin (vitamin B12) 1,000 1,000 mcg PO DAILY 10/27/22 01/03/23 mcg chewable tablet Allergies Allergy/AdvReac Type Severity Reaction Status Date / Time Cephalosporins Allergy Mild Hives / Verified 01/03/23 13:13 Red Face egg Allergy Mild Hives Verified 01/03/23 13:13 Sulfa (Sulfonamide Allergy Mild Rash Verified 01/03/23 13:13 Antibiotics) cephalexin Allergy Unknown Rash Verified 01/03/23 13:13 ciprofloxacin Allergy Unknown Hives Verified 01/03/23 13:13 iodine Allergy Unknown Hives Verified 01/03/23 13:13 ALT. PENICILLIN ANTIBIOTIC Allergy Severe HIVES Uncoded 01/02/23 08:28 IN PREOP Review of Systems Review of Systems: All systems reviewed & are unremarkable except as noted in HPI and below PMFSH Past Medical History Medical History Chronic SI joint pain Depression Elevated liver enzymes HLD (hyperlipidemia) Hypothyroidism Surgical History Surgical History Gastric bypass status for obesity H/O hernia repair H/O hysterectomy with oophorectomy History of hip surgery Hx of gastric bypass (~2016) Family History Family History (Reviewed 01/02/23 @ 08:29 by Sveta Flaherty [facility]) Mother Family history of thyroid disease Family history of heart disease in male family member before age 55 Father Family history of diabetes mellitus in first degree relative Sibling Family history of heart disease in male family member before age 55 Other Carcinoma of colon Hypertension Social History Social History (Updated 01/02/23 @ 08:30 by Sveta Flaherty [facility]) Years smoked: 12 Smoking status: Never smoker Tobacco type: e-cigarettes/vaping Second hand tobacco smoke exposure: No Smoking end date: 11/20/12 Alcohol intake: current Drinks per week: 2 Substance use: never Substance use type: does not use Lack of Transportation: No Lack of Food: Never True Current Housing: I Have Housing Concerned About Future Housing: No Difficulty Paying Gas/Electric Bills: No Difficulty Paying for Meds: No Currently Unemployed: No Education: Trade/Vocational Certificate Difficulty w/ Childcare or Family Care: No Living arrangements: with family Occupation/Education: other Gender identity (if verbalized by the patient): Female Spiritual care concerns: No Agree to blood products: Yes Exam Const: General: healthy appearing Nutritional Appearance: well nourished Orientation/consciousness: patient oriented x3 Limitations: no limitations Resp: Effort & Inspection: normal respiratory effort Cardio: Rate: regular rate Skin: General skin exam: normal color Rashes: no rashes Wounds: no wounds Neuro: General: patient oriented x3, moves all extremities and no focal motor deficits Extrem: Other: tender swollen over lateral malleolus left ankle, no 5th mt or prox fibula pain. no instability Psych: M
== END 2023-01-03 13:50 | disposition home or self-care (01) ==
PROVIDERS: Emergency Provider Emergency Medicine; PCP Family Medicine
DX: S93.402A Sprain of unspecified ligament of left ankle, initial encounter (principal); S96.912A Strain of unspecified muscle and tendon at ankle and foot level, left foot, initial encounter; E03.9 Hypothyroidism, unspecified; E78.5 Hyperlipidemia, unspecified; F17.290 Nicotine dependence, other tobacco product, uncomplicated; X50.0XXA Overexertion from strenuous movement or load, initial encounter
CPT/HCPCS: 73610; 99283

== ENCOUNTER 2023-01-24 09:33 | Emergency (ER) | payer BC, SELFPAY ==
[2023-01-24] VITALS (11 sets, daily range): BP systolic 107–145; BP diastolic 72–81; PULSE 59–78; RESP 11–21; TEMP 36.5–37.1; O2SAT 97–100
--- NOTE | ~2023-01-24 | XR_ITS ---
EXAMINATION: XR chest 2V DATE: 01/24/2023 10:26 INDICATION: Right-sided chest pain TECHNIQUE: PA and lateral views of the chest were obtained. COMPARISON: Chest radiograph dated 12/27/[address] abdomen and pelvis dated 03/18/2021 FINDINGS: Calcified left lower lobe nodule at the left azygos esophageal recess and adjacent calcified paraesop hageal lymph node consistent with old granulomatous disease. No focal airspace opacities, pulmonary e yanira, pleural effusion or pneumothorax. The cardiomediastinal silhouette is normal. Postoperative riley nges in the epigastric region. Moderate thoracic spondylosis with minimal to mild anterior wedging at several of the mid and lower thoracic vertebra. IMPRESSION: 1. No acute cardiopulmonary disease. Reviewed, dictated and finalized at location A. M STATION SUPERVISOR
--- NOTE | 2023-01-24 09:57 | ED.CHESTPAIN ---
HPI - Chest Pain General Chief Complaint: Chest Pain Stated Complaint: Right arm, shoulder pain Time Seen by Provider: 01/24/23 10:06 History of Present Illness HPI narrative: This is a 47-year-old female with past history of anxiety, hypothyroidism and hysterectomy, who presents the emergency department complaining of 4 days of right-sided chest and scapular pain. She describes the pain as sharp, worsened by deep breathing and movement of the right arm. She also notes cough productive of white sputum without blood. She denies associated nausea, vomiting or shortness of breath. 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 Related Data Home Medications Medication Instructions Recorded Confirmed Lactobac 51-Bifidobac 1 cap PO DAILY 10/27/22 01/24/23 3-L.lactis-S.thermophilus 4 billion cell capsule (Daily Probiotic (10 Strains)) calcium citrate 315 mg-vitamin D3 1 tablet PO DAILY 10/27/22 01/24/23 5 mcg (200 unit) tablet (Calcium Citrate + D) cholecalciferol (vitamin D3) 50 50 mcg PO DAILY 10/27/22 01/24/23 mcg (2,000 unit) capsule docusate sodium 100 mg tablet 100 mg PO DAILY 10/27/22 01/24/23 (Stool Softener) mecobalamin (vitamin B12) 1,000 1,000 mcg PO DAILY 10/27/22 01/24/23 mcg chewable tablet Allergies Allergy/AdvReac Type Severity Reaction Status Date / Time Cephalosporins Allergy Mild Hives / Verified 01/24/23 09:55 Red Face egg Allergy Mild Hives Verified 01/24/23 09:55 Sulfa (Sulfonamide Allergy Mild Rash Verified 01/24/23 09:55 Antibiotics) cephalexin Allergy Unknown Rash Verified 01/24/23 09:55 ciprofloxacin Allergy Unknown Hives Verified 01/24/23 09:55 iodine Allergy Unknown Hives Verified 01/24/23 09:55 ALT. PENICILLIN ANTIBIOTIC Allergy Severe HIVES Uncoded 01/02/23 08:28 IN PREOP Review of Systems Review of Systems: CONSTITUTIONAL: Denies fever, chills, or sweats. ENT: Denies rhinorrhea, congestion, sore throat, or otalgia. CARDIOVASCULAR: Right-sided chest pain denies palpitations, or edema. RESPIRATORY: Denies cough or dyspnea. GASTROINTESTINAL: Denies abdominal pain, nausea, vomiting, or diarrhea. GENITOURINARY: Denies dysuria or hematuria. SKIN: Denies rash or itching. MUSCULOSKELETAL: Denies back pain, joint pain, or myalgia. NEUROLOGIC: Denies headache, numbness, dizziness, or weakness. PSYCHIATRIC: Denies anxiety or depression. REPLACED BY [facility] Past Medical History Medical History Chronic SI joint pain Depression Elevated liver enzymes HLD (hyperlipidemia) Hypothyroidism Surgical History Surgical History Gastric bypass status for obesity H/O hernia repair H/O hysterectomy with oophorectomy History of hip surgery Hx of gastric bypass (~2015) Family History Family History Mother Family history of thyroid disease Family history of heart disease in male family member before age 55 Father Family history of diabetes mellitus in first degree relative Sibling Family history of heart disease in male family member before age 55 Other Carcinoma of colon Hypertension Social History Social History Years smoked: 12 Smoking status: Never smoker Tobacco type: e-cigarettes/vaping Second hand tobacco smoke exposure: No Smoking end date: 11/20/12 Alcohol intake: current Drinks per week: 2 Substance use: never Substance use type: does not use Lack of Transportation: No Lack of Food: Never True Current Housing: I Have Housing Concerned About Future Housing: No Difficulty Paying Gas/Electric Bills: No Difficulty Paying for Meds: No Currently Unemployed: No Education: Trade/Vocational Certificate Difficulty w/ Childcare or Family Care: No Living arrangements: with family Occupation/Education:
[2023-01-24 10:10] LABS: Basophils Absolute Auto 0.06 K/mm3 (0.00-0.10); Basophils Percent Auto 1.2 % (0.0-1.0); Eosinophils Absolute Auto 0.16 K/mm3 (0.02-0.50); Eosinophils Percent Auto 3.3 % (1.0-6.0); Hemoglobin 12.2 g/dL (12.0-15.0); Immature Granulocyte Absolute 0.01 K/mm3 (0.00-0.00); Immature Granulocyte Percent A 0.2 % (0.0-0.0); Mean Corpuscular HGB Conc 32.1 g/dL (32.0-36.0); Mean Corpuscular Hemoglobin 31.1 pg (27.0-31.0); Mean Corpuscular Volume 96.9 fL (78.0-102.0); Mean Platelet Volume 9.7 fl (9.2-11.8); Monocytes Absolute Auto 0.38 K/mm3 (0.10-0.90); Monocytes Percent Auto 7.9 % (2.0-11.0); Neutrophils Absolute Auto 2.9 K/mm3 (1.7-7.2); Neutrophils Percent Auto 60.4 % (50.0-70.0); Platelet Count Result 201 K/mm3 (150-420); Red Blood Count 3.92 M/mm3 (4.20-5.40); Red Cell Distribution Width 12.9 % (11.6-14.4); White Blood Count 4.8 K/mm3 (4.8-10.8)
--- NOTE | 2023-01-24 10:14 | ECG_ITS ---
Measurements Intervals [place] Rate: 65 P: 57 AR: 168 QRS: 41 QRSD: 88 T: 66 QT: 393 QTc: 410 Interpretive Statements SINUS RHYTHM BORDERLINE ST-T WAVE ABNORMALITY- HIGH LATERAL LEADS BORDERLINE ECG COMPARED TO ECG 09/24/2020 02:15:46 SINUS RHYTHM NOW PRESENT Electronically Signed On 01-24-2023 13:16:59 REFERENCE INVESTIGATOR by Daniel Gonzalez D.O.
[2023-01-24 10:34] LABS: Troponin I < 4.0 ng/L (0.00-60.4)
== END 2023-01-24 10:48 | disposition home or self-care (01) ==
PROVIDERS: Emergency Provider Preventive Medicine Aerospace Medicine; PCP Family Medicine
DX: R07.89 Other chest pain (principal); S46.811A Strain of other muscles, fascia and tendons at shoulder and upper arm level, right arm, initial encounter; E03.9 Hypothyroidism, unspecified; E78.5 Hyperlipidemia, unspecified; X58.XXXA Exposure to other specified factors, initial encounter
CPT/HCPCS: 36415; 71046; 84484; 85025; 93005; 99283

== ENCOUNTER → 2023-02-24 10:29 | Outpatient (CLI) | payer BC, SELFPAY ==
--- NOTE | ~2023-02-24 | MM_ITS ---
EXAMINATION: MM screening [facility] BI w nargis HISTORY: Screening TECHNIQUE: Craniocaudal and mediolateral oblique 3-D tomosynthesis images were obtained and synthetic 2-D images were generated. CAD analysis was submitted and interpreted. COMPARISON: Comparison to multiple prior studies sequentially, with oldest reviewed study dated 06/06 2. BREAST PARENCHYMAL COMPOSITION: There are scattered areas of fibroglandular density. FINDINGS: There is no evidence of suspicious mass, calcification, or architectural distortion to sugg est malignancy in either breast. There has been no suspicious interval change. IMPRESSION: 1. No mammographic evidence of malignancy. 2. Recommend routine screening mammography in one year. BI-RADS Category 1: Negative Reviewed, dictated and finalized at location A.
== END ==
PROVIDERS: PCP Family Medicine; Visit Provider Physician Assistant
DX: Z12.31 Encounter for screening mammogram for malignant neoplasm of breast (principal)
CPT/HCPCS: 77063; 77067

== ENCOUNTER 2024-01-02 12:44 | Emergency (ER) | payer BC, SELFPAY ==
--- NOTE | ~2024-01-02 | XR_ITS ---
Right wrist Technique: PA, oblique, lateral, and ulnar deviation views were obtained. Clinical History: Pain Findings: Possible minimally displaced intra-articular fracture of the ulnar aspect of the distal rad ius near the reticulation of the DRUJ. Suspected tiny fracture the tip of the ulnar styloid process. Joint spaces are preserved. Dorsal soft tissue swelling at the wrist noted. Impression: Suspected minimally displaced intra-articular fracture at the ulnar aspect of the distal radius near the DRUJ. Probable tiny fracture the tip of the ulnar styloid process. Reviewed, dictated and finalized at location M. SUPERVISOR Impression: Suspected minimally displaced intra-articular fracture at the ulnar aspect of t he distal radius near the DRUJ. Probable tiny fracture the tip of the ulnar styloid process.
--- NOTE | ~2024-01-02 | XR_ITS ---
Right Hand Technique: PA, oblique, and lateral views were obtained. Clinical History: Pain Findings: No acute fracture or dislocation is seen. Osseous alignment is anatomic. Joint spaces are p reserved. Soft tissues are unremarkable. Impression: Unremarkable right hand. Reviewed, dictated and finalized at location M. ONAL VAN OWNER OPERATOR Impression: Unremarkable right hand.
[2024-01-02 12:44] VITALS: BP 128/90; PULSE 92; RESP 17; TEMP 36.4; O2SAT 96
--- NOTE | 2024-01-02 12:49 | ED.UPPEXIN ---
HPI - Extremity Injury (Upper) General Chief Complaint: Extremity Injury, Upper Stated Complaint: WRIST INJURY Time Seen by Provider: 01/02/24 12:48 History of Present Illness HPI narrative: Patient is a 48-year-old female with history of chronic hip pain status post bilateral hip replacement here with right wrist injury. She states that last night she was cleaning her house and tripped and fell over a baby gait, falling down onto her right outstretched wrist. She notes that she had immediate pain to the right wrist and hand. She has been attempting to manage her pain at home, last took her home tramadol around 1200 today with minimal help. Given persistent pain she presented to the ED for evaluation. She denies weakness or numbness in her hand. She is right hand dominant. No additional injuries. Related Data Home Medications Medication Instructions Recorded Confirmed Lactobac 51-Bifidobac 1 cap PO DAILY 10/27/22 01/02/24 3-L.lactis-S.thermophilus 4 billion cell capsule (Daily Probiotic (10 Strains)) calcium citrate 315 mg-vitamin D3 1 tablet PO DAILY 10/27/22 01/02/24 5 mcg (200 unit) tablet (Calcium Citrate + D) cholecalciferol (vitamin D3) 50 50 mcg PO DAILY 10/27/22 01/02/24 mcg (2,000 unit) capsule docusate sodium 100 mg tablet 100 mg PO DAILY 10/27/22 01/02/24 (Stool Softener) mecobalamin (vitamin B12) 1,000 1,000 mcg PO DAILY 10/27/22 01/02/24 mcg chewable tablet Allergies Allergy/AdvReac Type Severity Reaction Status Date / Time Cephalosporins Allergy Mild Hives / Verified 07/06/23 09:03 Red Face egg Allergy Mild Hives Verified 07/06/23 09:03 Sulfa (Sulfonamide Allergy Mild Rash Verified 07/06/23 09:03 Antibiotics) cephalexin Allergy Unknown Rash Verified 07/06/23 09:03 ciprofloxacin Allergy Unknown Hives Verified 07/06/23 09:03 iodine Allergy Unknown Hives Verified 07/06/23 09:03 ALT. PENICILLIN ANTIBIOTIC Allergy Severe HIVES Uncoded 07/06/23 09:03 IN PREOP Review of Systems Review of Systems: All systems reviewed & are unremarkable except as noted in HPI and below PMFSH Past Medical History Medical History Chronic SI joint pain Depression Elevated liver enzymes HLD (hyperlipidemia) Hypothyroidism Surgical History Surgical History Gastric bypass status for obesity H/O hernia repair H/O hysterectomy with oophorectomy History of hip surgery Hx of gastric bypass (~2016) Family History Family History Mother Family history of thyroid disease Family history of heart disease in male family member before age 55 Father Family history of diabetes mellitus in first degree relative Sibling Family history of heart disease in male family member before age 55 Other Carcinoma of colon Hypertension Social History Social History Years smoked: 12 Smoking status: Never smoker Tobacco type: e-cigarettes/vaping Second hand tobacco smoke exposure: No Smoking end date: 11/20/12 Alcohol intake: current Drinks per week: 2 Substance use: never Substance use type: does not use Lack of Transportation: No Lack of Food: Never True Current Housing: I Have Housing Concerned About Future Housing: No Difficulty Paying Gas/Electric Bills: No Difficulty Paying for Meds: No Currently Unemployed: No Education: Trade/Vocational Certificate Difficulty w/ Childcare or Family Care: No Living arrangements: with family Occupation/Education: other Gender identity (if verbalized by the patient): Female Spiritual care concerns: No Agree to blood products: Yes Exam Narrative: GENERAL: Well-appearing, well-nourished, and in no acute distress. HEAD: Normocephalic, atraumatic. EYES: PERRLA and EOMI. ENT: Leonel lentz
[2024-01-02] MEDS: HYDROcodone/acetaminophen (*CRX) 5-325 MG TABLET 1 TAB PO (13:33)
[2024-01-02 14:40] VITALS: BP 118/87; PULSE 75; RESP 17; TEMP 36.5; O2SAT 97
== END 2024-01-02 14:40 | disposition home or self-care (01) ==
PROVIDERS: Emergency Provider Student in an Organized Health Care Education/Training Program; PCP Family Medicine
DX: S52.501A Unspecified fracture of the lower end of right radius, initial encounter for closed fracture (principal); E78.5 Hyperlipidemia, unspecified; E03.9 Hypothyroidism, unspecified; Z96.643 Presence of artificial hip joint, bilateral; Z79.899 Other long term (current) drug therapy; F17.290 Nicotine dependence, other tobacco product, uncomplicated; W01.0XXA Fall on same level from slipping, tripping and stumbling without subsequent striking against object, initial encounter; Y92.009 Unspecified place in unspecified non-institutional (private) residence as the place of occurrence of the external cause
CPT/HCPCS: 29125; 73110; 73130; 99284; A4565; A9270

== ENCOUNTER 2024-01-30 09:58 | Outpatient (CLI) | payer BC, SELFPAY ==
[2024-01-30 10:18] LABS: Hematocrit 40.7 % (37.0-47.0); Hemoglobin 12.6 g/dL (12.0-15.0); Mean Corpuscular Hemoglobin 29.4 pg (26-34); Mean Corpuscular Volume 95.1 fl (80-100); Mean Platelet Volume 10.1 fl (7.4-10.4); Platelet Count Result 264 k/mm3 (150-375); Red Blood Count 4.28 M/mm3 (4.2-5.4)
[2024-01-30 10:36] LABS: Alanine Aminotransferase 17 U/L (6-35); Albumin Level 4.2 g/dL (3.5-5.1); Alkaline Phosphatase 112 U/L (38-126); Anion Gap 7 mmol/L (8-16); Aspartate Amino Transferase 28 U/L (14-36); Bilirubin,Total 0.5 mg/dL (0.2-1.3); Blood Urea Nitrogen 8 mg/dL (7-17); Calcium 9.7 mg/dL (8.4-10.2); Carbon Dioxide 29 mmol/L (22-30); Chloride 103 mmol/L (98-107); Cholesterol 272 mg/dL (0-200); Estimated Glomerular Filt Rate > 60; Glucose 102 mg/dL (65-110); HDL Direct 68 mg/dL; Potassium 3.8 mmol/L (3.4-5.0); Sodium 139 mmol/L (137-145); Triglycerides 133 mg/dL (<150)
[2024-01-30 10:48] LABS: LDL Cholesterol Direct 170 mg/dL
[2024-01-30 11:33] LABS: Free T4 Free Thyroxine 0.88 ng/mL (0.78-2.19)
== END 2024-01-30 09:59 | disposition home or self-care (01) ==
LOC: ANHLAB 09:59
PROVIDERS: PCP Family Medicine; Visit Provider Physician Assistant
DX: D64.9 Anemia, unspecified (principal); E03.9 Hypothyroidism, unspecified; Z13.220 Encounter for screening for lipoid disorders; R53.83 Other fatigue; Z13.1 Encounter for screening for diabetes mellitus
CPT/HCPCS: 36415; 80053; 80061; 84439; 84443; 85027

== ENCOUNTER 2024-05-03 13:22 | Emergency (ER) | payer BC, SELFPAY ==
--- NOTE | ~2024-05-03 | XR_ITS ---
XR hip LT min 2V 05/03/2024 13:49 INDICATION: Left hip pain PROCEDURE: 2 views left hip COMPARISON: 12/13/2018 FINDINGS: There is a healing left inferior pubic ramus fracture. Mild osteoarthritis of the left hip. The soft tissues appear within normal limits. No foreign bodies are identified. IMPRESSION: 1:Healing left inferior pubic ramus fracture. Reviewed, dictated and finalized at location B.
[2024-05-03 13:24] VITALS: BP 153/93; PULSE 94; RESP 18; O2SAT 97
[2024-05-03 13:29] VITALS: TEMP 36.4
--- NOTE | 2024-05-03 13:38 | ED.EXTPRO ---
HPI - Extremity Problem General Chief complaint: Extremity Problem,Nontraumatic Stated complaint: left hip pain Time Seen by Provider: 05/03/24 13:24 Source: patient Mode of arrival: ambulatory Limitations: no limitations History of Present Illness HPI Narrative: patient is a 41-year-old female with significant past medical history presents today for left hip pain. Patient has had left hip pain now for many years however the last 2 weeks has gotten worse. She does have a history of surgery in this left hip with but anchors in. She states that the last couple days has gotten worse to where she says it is more difficult to walk. She does take Tylenol and tramadol for the pain and states that this has not helped. She cannot take NSAIDs because she has a history a gastric sleeve. MD Complaint: extremity pain Onset (ago): week(s) Pain Consistency: intermittent Location: left, lower extremity and other (hip) Severity scale (1-10): 5 Quality: stabbing Radiation: none Relieving factors: nothing Exacerbating factors: nothing Associated symptoms: denies other symptoms Related Data Home Medications Medication Instructions Recorded Confirmed Lactobac 51-Bifidobac 1 cap PO DAILY 10/27/22 02/06/24 3-L.lactis-S.thermophilus 4 billion cell capsule (Daily Probiotic (10 Strains)) calcium citrate 315 mg-vitamin D3 1 tablet PO DAILY 10/27/22 02/06/24 5 mcg (200 unit) tablet (Calcium Citrate + D) cholecalciferol (vitamin D3) 50 50 mcg PO DAILY 10/27/22 02/06/24 mcg (2,000 unit) capsule docusate sodium 100 mg tablet 100 mg PO DAILY 10/27/22 02/06/24 (Stool Softener) mecobalamin (vitamin B12) 1,000 1,000 mcg PO DAILY 10/27/22 02/06/24 mcg chewable tablet Allergies Allergy/AdvReac Type Severity Reaction Status Date / Time Cephalosporins Allergy Mild Hives / Verified 02/06/24 08:56 Red Face egg Allergy Mild Hives Verified 02/06/24 08:56 Sulfa (Sulfonamide Allergy Mild Rash Verified 02/06/24 08:56 Antibiotics) cephalexin Allergy Unknown Rash Verified 02/06/24 08:56 ciprofloxacin Allergy Unknown Hives Verified 02/06/24 08:56 iodine Allergy Unknown Hives Verified 02/06/24 08:56 ALT. PENICILLIN ANTIBIOTIC Allergy Severe HIVES Uncoded 02/06/24 08:56 IN PREOP Review of Systems Review of Systems: All systems reviewed & are unremarkable except as noted in HPI and below Constitutional: Constitutional: Reports as per HPI Eyes: Eyes: Reports no additional eye complaints ENT: Reports system reviewed and no additional complaints, except as documented Cardiovascular: Cardiovascular: Reports no additional cardiovascular complaints Respiratory: Respiratory: Reports no additional respiratory complaints Gastrointestinal: Gastrointestinal: Reports no additional gastrointestinal complaints Genitourinary: Genitourinary: Reports no additional female genitourinary complaints Musculoskeletal: Musculoskeletal: Reports arthralgias ( Left hip pain) Integumentary/Breasts: Skin/Breast: Reports system reviewed and no additional complaints, except as docu Neurologic: Reports system reviewed and no additional complaints, except as documented Psychiatric: Psychiatric: Reports no additional psychiatric complaints Endocrine: Endocrine: Reports no additional endocrine complaints Hematologic/Lymphatic: Hematologic/Lymphatic: Reports no additional hematologic/lymphatic complaints Allergic/Immunologic: Allergic/Immunologic: Reports no additional allergic/immunologic complaints [facility] Past Medical History Medical History Chronic SI joint pain Depression Elevated liver enzymes HLD (hyperlipidemia) Hypothyroidism Surgical History Surgical History Gastric bypass status for obesity H/O hernia repair H/O hysterectomy with oophorectomy History of hip surgery Hx of gastric bypass (~2015) Family History Fami
[2024-05-03] MEDS: CYCLOBENZAPRINE HCL 10 MG TABLET PO (13:41)
[2024-05-03] MEDS: HYDROcodone/acetaminophen (*CRX) 5-325 MG TABLET 1 TAB PO (13:42)
[2024-05-03 14:31] VITALS: BP 138/85; PULSE 67; RESP 16; O2SAT 99
== END 2024-05-03 14:37 | disposition home or self-care (01) ==
PROVIDERS: Emergency Provider Family Medicine; PCP Family Medicine
DX: S32.502A Unspecified fracture of left pubis, initial encounter for closed fracture (principal); E03.9 Hypothyroidism, unspecified; E78.5 Hyperlipidemia, unspecified; F17.290 Nicotine dependence, other tobacco product, uncomplicated; X58.XXXA Exposure to other specified factors, initial encounter
CPT/HCPCS: 73502; 99283; A9270

== ENCOUNTER 2025-10-13 08:48 | Outpatient (CLI) | payer BC, SELFPAY ==
--- NOTE | ~2025-10-13 | XR_ITS ---
EXAMINATION: XR femur RT min 2V, 10/13/2025 9:08 ELECTRONIC SCANNER OPERATOR HISTORY: M79.604 - Pain in right leg, PAIN SUPERIOR, ANT/MED X 2 WEEK COMPARISON: No comparisons available. Findings: No acute fracture or malalignment. Moderate degenerative changes Soft tissues unremarkable. Impression: No acute fracture or malalignment. Reviewed, dictated and finalized at location P. TRONIC SCANNER OPERATOR Impression: No acute fracture or malalignment.
--- OUTSIDE RECORDS SUMMARY | 2025-10-13 09:22 | XMS_ITS | Clinical Summary ---
Author Organization [facility] [place] [address] Address [address] [place] [address] Care Team Providers Care Patents Examiner Name Role Phone Sultana Olivas MD Primary Care Provider [phone] Allergies Active Allergy Reactions Criticality Noted Date Comments Sulfamethoxazole-Trimeth oprim Rash,Other (See comments),Redness High 06/08/2021 Skin peeling Ciprofloxacin Shortness of breath High 06/19/2015 Iodinated Contrast Media Anaphylaxis,Shreya rtnes s of breath High 12/06/2019 Throat swelling Iodine Shortness of breath High 06/19/2015 Cephalexin Hives,Shortness of breath High 12/06/2019 Nsaids (Non-Steroidal Anti-Inflammatory Drug) Other (See comments) Low 12/06/2019 Secondary to gastric bypass Medications levothyroxine (SYNTHROID, LEVOTHROID) 75 mcg tabletIndication s:hypothyroidism Take 75 mcg by mouth specialist field engineer before breakfast Active docusate sodium (COLACE) 100 mg capsuleIndicatio ns:constipation Take 100 mg by mouth 2 (two) times a day. Active multivitamin capsuleIndicatio ns:Vitamin Deficiency Prevention Take 1 capsule by mouth every morning Active NYSTOP powderIndication s:cutaneous candidiasis Apply 1 application topically 2 (two) times a day as needed 0 9 Active triamcinolone (KENALOG) 0.1 % lotion Apply 1 application topically 2 (two) times a day as needed for rash 0 9 Active estradiol (ESTRACE) 1 mg tabletIndication s:hormone replacement Take 1 mg by mouth every morning Active ondansetron (ZOFRAN) 4 mg tablet Take 1 tablet (4 mg total) by mouth every 6 (six) hours as needed for nausea or vomiting 40 tablet 1 Active cyanocobalamin (vitamin B-12) 1,000 mcg tablet Take 1 tablet by mouth every morning Active famotidine (PEPCID) 40 mg tabletIndication s:Heartburn Prevention Take 40 mg by mouth 2 (two) times a day 1 Active melatonin 10 mg tabletIndication s:insomnia Take 20 mg by mouth nightly Active acetaminophen (TYLENOL) 500 mg tablet Take 1,000 mg by mouth every 6 (six) hours as needed for pain or headaches Active cholecalciferol (VITAMIN D-3) 25 mcg (1,000 unit) tablet Take 1,000 Units by mouth every morning Active traMADoL (ULTRAM) 50 mg tablet TAKE 2 TABLETS BY MOUTH EVERY 8 HOURS NEEDED FOR PAIN 180 tablet 1 Active simethicone (MYLICON) 125 mg chewable tablet Take 125 mg by mouth every 6 (six) hours as needed for flatulence Active calcium carbonate (OS-JB) 1,250 MG (500 mg of elemental calcium) tablet Acti ve zolpidem CR (AMBIEN CR) 12.5 mg CR tablet TAKE 1 TABLET BY MOUTH ONCE DAILY AT BEDTIME NEEDED FOR SLEEP 1 Active escitalopram (LEXAPRO) 10 mg tablet 1 Active escitalopram (LEXAPRO) 5 mg tablet 1 Active Active Problems Problem Noted Date Diagnosed Date Left hip pain following arth roscopy, labral repair, osteochondroplasty 09/18/2020 Hypothyroidism 12/16/2019 Incisional hernia 12/16/2019 Left flank mass 12/16/2019 Morbid obesity 12/16/2019 Obesity (BMI 35.0-39.9 without comorbidity) 11/21 Trochanteric bursitis of left hip 09/26/2019 Overview (09/26/2019): Added automatically from request for surgery [id number] Femoroacetabular impingement of left hip 019 Overview (09/26/2019): Added automatically from request for surgery [id number] Labral tear of hip, degenerative 09/26/2019 Overview (09/26/2019): Added automatically from request for surgery [id number] Near syncope 02/08/2018 Sacroiliac joint pain 10/09/2017 Pain in the coccyx 05/22/2017 Gastric bypass status for obesity 06/09/2016 Surgical History Surgery Date Site/Laterality Comments GASTRIC BYPASS 11/20/2015 - 11/19/2016 ANKLE FRACTURE SURGERY 11/20/1999 - 11/19/2000 Left wires placed HYSTERECTOMY 11/20/2009 - 11/19/2010 HERNIA REPAIR 11/20/2015 - 11/19/2016 umbilical. Mesh placed KNEE SURGERY 11/20/1995 - 11/19/1996 Right excision excess bone FLUORO GUIDED ASPIRATION OR INJECTION LARGE JOINT LEFT 01/05/2021 Left HIP SURGERY 11/20/2019 - 11/19/2020 Left arthroscopy COLECTOMY 04/17/2021 due to twisted intestine / repaired a hernia at same time (Emergent Surgery0 COLONOSCOPY 11/20/2011 - 11/19/2012 ESOPHAGOGASTRODUODENOSCOPY Medical History Medical History Date Comments Arthritis Near syncope 2014 evalutated by [facility] rdiology-->ECHO, Holter, 30 day event monitor-->all negative. Cardiology, (04/24/2018), says no further eval needed and will see prn Insomnia well controlled with meds Pustular psoriasis hands, finger , palms and feet. fairly controlled with meds Hypertension h/o now resolved Hyperlipidemia borderline, no m eds. Just monitoring at this time GERD (gastroesophageal reflux disease) well controlled with meds Hypothyroidism well controlled with meds Family History Medical History Relation Name Comments Diabetes Father Arthritis Mother Cancer Mother Heart disease Mother Hypertension Mother Obesity Mother Anesthesia problems Sister Agitatio n Heart disease Sister Hypertension Sister Relation Name Status Comments Father Alive Mother Sister Social History Tobacco Use Types Packs/Day Years Used Date Smoking Tobacco: Former Cigarettes 0.5 21 1 3 - 2013 Vaping Smokeless Tobacco: Never Comments:currently vapes Alcohol Use Standard Drinks/Week Comments No 0 (1 standard drink = 0.6 oz pur e alcohol) AUDIT-C Answer Date Recorded Q1: How often do you have a drink containing alc ohol? Never 06/08/2021 Average Number of Drinks Not on file 021 Q3: How often do you have si x or more drinks on one occasion? 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 Not on file Not on file Last Filed Vital Signs Vital Sign Reading Time Taken Comments Blood Pressure 142/86 06/17/2021 6:20 PM CDT Pulse 62 06/17/2021 6:20 PM CDT Temperature 37.1 C (98.8 F) 06/17/2021 6:15 PM CDT Respiratory Rate 10 06/17/2021 6:20 PM CDT Oxygen Saturation 99% 06/17/2021 6:20 PM CDT Inhaled Oxygen Concentration - - Weight 66.4 kg (146 lb 4.8 oz) 06/17/2021 11:08 AM CDT Height 167.6 cm (5' 6) 06/17/2021 11:08 AM CDT Body Mass Index 23.61 06/17/2021 11:08 AM CDT Plan of Treatment Not on file Medical Devices Implanted Type Area Steel Estimator Device Identifier Shelf Expiration Date Model / Serial / Lot [employer] [id number] 23cm Allograft Frozen Irradiate 2 Strand Graft Soft Tissue - [id number] Implanted:Qty: 1 on 12/12/2019 by Clau Roberts MD at [facility] Left: Hip [employer] 09/30/2023 [id number] / / [id number] [employer] [id number] Nanotack 1.4mm Flex Survey Statistician 2 Stage Fixation Computer Discovery Teacher Hole 25d - [id number] Implanted:Qty: 1 on 12/12/2019 by Clau Roberts MD at [facility] Left: Hip [employer] [id number] 08/07/2020 [id number] / / [id number] [facility] [id number] Nanotack 1.4mm Flex Survey Statistician 2 Stage Fixation Computer Discovery Teacher Hole 25d - [id number] Implanted:Qty: 1 on 12/12/2019 by Clau Roberts MD at [facility] Left: Hip [facility] [id number] 10/10/[id number] / / [id number] [employer] [id number] Nanotack 1.4mm Flex Survey Statistician 2 Stage Fixation Computer Discovery Teacher Hole 25d - S00 - [id number] Implanted:Qty: 1 on 12/12/2019 by Clau Roberts MD at [facility] Left: Hip [employer] [id number] 10/10/[id number] / [id number] [facility] [id number] Nanotack 1.4mm Flex Survey Statistician 2 Stage Fixation Computer Discovery Teacher Hole 25d - S00 - [id number] Implanted:Qty: 1 on 12/12/2019 by Clau Roberts MD at [facility] Left: Hip [employer] [id number] 10/21/2020 [id number] / [id number] [employer] [facility] [id number] Nanotack 1.4mm Flex Survey Statistician 2 Stage Fixation Computer Discovery Teacher Hole 25d - [id number] Implanted:Qty: 1 on 12/12/2019 by Clau Roberts MD at [facility] Left: Hip [facility] [id number] 10/21/2020 [id number] / / [id number] [employer] [id number] Cinchlock Ss Knotless Survey Statistician Lock Grand Ledge Suture Labrum - S00 - [id number] Implanted:Qty: 1 on 12/12/2019 by Clau Roberts MD at [facility] Left: Hip [employer] [id number] 01/29/2021 [id number] / 00 / [id number] [employer] [id number] Cinchlock Ss Knotless Survey Statistician Lock Grand Ledge Suture Labrum - S00 - [id number] Implanted:Qty: 1 on 12/12/2019 by Clau Roberts MD at [facility] Left: Hip [employer] [id number] 01/29/2021 [id number] / 00 / [id number] [facility] [id number] Xbraid 1.2mm Suture Nonabsorbable Titanium Uhmwpe Nonsterile - [id number] Implanted:Qty: 1 on 12/12/2019 by Clau Roberts MD at [facility] Left: Hip [facility] 06/19/2021 [id number] / / [id number] Insurance [employer] [place]CIAL [place] [employer] [place] BLUE ACCESS [place] Care Teams Patents Examiner Relationship Specialty Start Date End Date Sultana Olivas MD PCP - General Family Medicine 02/07/18
--- OUTSIDE RECORDS SUMMARY | 2025-10-13 09:22 | XMS_ITS | Encounter Summary ---
Author Organization [facility] Healthcare Address [address] [place] [address] Care Team Providers Care End Finder Twisting Department Name Role Phone Sultana Olivas MD Primary Care Provider [phone] Encounter Details Date Type Department Care Team (Late st Contact Info) Description 12/22/2020 Telephone [facility] [address] [place] [address] Fina Smith, RT Social History Tobacco Use Types Packs/Day Years Used Date Smoking Tobacco: Former Cigarettes 1 2013 E-cigarettes Smokeless Tobacco: Current Comments:vapes now Alcohol Use Standard Drinks/Week Comments No 0 (1 standard drink = 0.6 oz pur e alcohol) Comments No Sex and Gender Information Value Date Recorded Sex Assigned at Not on file Legal 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
--- OUTSIDE RECORDS SUMMARY | 2025-10-13 09:22 | XMS_ITS | Encounter Summary ---
Author Organization [facility] Healthcare Address [address] [place] [address] Care Team Providers Care Regional Director Name Role Phone Sultana Olivas MD Primary Care Provider [phone] Encounter Details Date Type Department Care Team (Late st Contact Info) Description 04/30/2021 Documentation [facility] [address] [place] [address] Deepak Gay, TIT[address] [place] [address] Anesthesia Record Procedure Summary Procedure Name Responsible Anesthesiologist Anesthesia Start Time Anesthesia Stop Time Events No events on file. Meds * Agents No agents on file. * Blood No blood administrations on file. Lines, Drains, and Airways No LDAs on file. documented in this encounter Social History Tobacco Use Types Packs/Day Years Used Date Smoking Tobacco: Former Cigarettes 1 - 2013 E-cigarettes Smokeless Tobacco: Never Comments:vapes now Alcohol Use Standard Drinks/Week Comments No 0 (1 standard drink = 0.6 oz pur e alcohol) AUDIT-C Answer Date Recorded Q1: How often do you have a drink containing alc ohol? Never 2021 Average Number of Drinks Not on file 021 Q3: How often do you have si x or more drinks on one occasion? 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
--- OUTSIDE RECORDS SUMMARY | 2025-10-13 09:22 | XMS_ITS | Encounter Summary ---
Author Organization [facility] Healthcare Address [address] [place] [address] Care Team Providers Care Spouter Name Role Phone Sultana Olivas MD Primary Care Provider [phone] Reason for Visit * Reason Onset Date Comments Scheduling Appointments 01/04/2021 reminder call for left hip injection Encounter Details Date Type Department Care Team (Late st Contact Info) Description 01/04/2021 Telephone [facility] [address] [place] [address] Karoline Kiser, RT Scheduling Appointments (reminder call for left hip injection ) Social History Tobacco Use Types Packs/Day Years Used Date Smoking Tobacco: Former Cigarettes 2013 E-cigarettes Smokeless Tobacco: Current Comments:vapes now Alcohol Use Standard Drinks/Week Comments No 0 (1 standard drink = 0.6 oz pur e alcohol) Comments No Sex and Gender Information Value Date Recorded Sex Assigned at Not on file 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
== END 2025-10-13 08:49 | disposition home or self-care (01) ==
DX: M79.604 Pain in right leg (principal)
CPT/HCPCS: 73552

== ENCOUNTER 2025-10-28 09:34 | Outpatient (CLI) | payer BC, SELFPAY ==
--- NOTE | ~2025-10-28 | US_ITS ---
EXAMINATION: US venous doppler LE RT DATE: 10/28/2025 10:05 INDICATION: Disorders of bone TECHNIQUE: Grayscale ultrasound images without and with compression and Doppler ultrasound images of the right lower extremity veins were obtained. COMPARISON: None. FINDINGS: The visualized portions of right common femoral vein, profunda (deep) femoral vein, femoral vein, popliteal vein, peroneal veins, posterior tibial veins, and greater saphenous vein outflow are patent. IMPRESSION: 1. No deep venous thrombosis seen in the right lower extremity. Reviewed, dictated and finalized at location A. OELECTRIC PLANT TECHNICIAN
== END 2025-10-28 09:35 | disposition home or self-care (01) ==
DX: M89.8X5 Other specified disorders of bone, thigh (principal)
CPT/HCPCS: 93971